=== PATIENT | male | born 1950 | race Caucasian/White ===

== ENCOUNTER 2021-12-08 10:07 | Outpatient (REF) | payer MEDICARE, OTHER, SELFPAY ==
[2021-12-08 16:17] LABS: ALT 28 U/L (16-63); AST 16 U/L (15-37); Albumin 3.9 g/dL (3.4-5.0); Alkaline Phosphatase 82 U/L (46-116); Anion Gap 9.8 mmol/L (3-11); BUN 20 mg/dL (7-18); Bilirubin, Total 1.6 mg/dL (0.2-1.0); CO2 26.2 mmol/L (21.0-32.0); CREATININE 1.2 mg/dL (0.70-1.30); Calcium 9.1 mg/dL (8.5-10.1); Chloride 106 mmol/L (98-107); Estimated GFR 59.86 (mL/min/1.73m2); Glucose 84 mg/dL (74-106); Potassium 4.5 mmol/L (3.5-5.1); Sodium 142 mmol/L (136-145)
[2021-12-08 19:59] LABS: Bilirubin, Direct 0.2 mg/dL (0.0-0.2)
== END 2021-12-08 10:08 | disposition home or self-care (01) ==
LOC: NCHCN 10:07
PROVIDERS: Visit Provider Nurse Practitioner Family
DX: N18.9 Chronic kidney disease, unspecified (principal); R17 Unspecified jaundice; R79.89 Other specified abnormal findings of blood chemistry
CPT/HCPCS: 80053; 82248

== ENCOUNTER 2022-09-16 10:43 | Outpatient (REF) | payer MEDICARE, OTHER, SELFPAY ==
[2022-09-16 14:59] LABS: Abs Immature Grans 0.01 10^3/uL (0.0-0.06); Absolute Basophil Count 0.02 10^3/uL (0.0-0.2); Absolute Eosinophil Count 0.25 10^3/uL (0.0-0.7); Absolute Lymphocyte Count 1.39 10^3/uL (1.2-3.4); Absolute Monocyte Count 0.73 10^3/uL (0.1-0.8); Absolute Neutrophil Count 4.28 10^3/uL (1.2-6.7); Basophils % 0.3; Eosinophils % 3.7; HCT 45.9 % (40.0-50.0); HGB 15.3 g/dL (13.5-17.5); Immature Grans % 0.1; Lymphocytes % 20.8; MCH 29.5 pg (27.0-33.0); MCHC 33.3 % (32.0-36.0); MCV 89 fL (80-95); MPV 9.9 fL (8.0-11.0); Monocytes % 10.9; Neutrophils % 64.2; Platelet Count 250 10^3/uL (130-400); RBC 5.18 10^6/uL (4.36-5.78); RDW 13.2 % (11.8-14.1); RDW-SD 43.1 fL; WBC 6.68 10^3/uL (4.4-10.8)
[2022-09-16 15:33] LABS: Vitamin D 25 Total 41.7 ng/mL (30-100)
[2022-09-16 15:35] LABS: ALT 24 U/L (16-63); AST 22 U/L (15-37); Alkaline Phosphatase 86 U/L (46-116); Anion Gap 9.1 mmol/L (3-11); BUN 17 mg/dL (7-18); Bilirubin, Direct 0.2 mg/dL (0.0-0.2); Bilirubin, Total 1.8 mg/dL (0.2-1.0); CO2 25.9 mmol/L (21.0-32.0); CREATININE 1.1 mg/dL (0.70-1.30); Calculated LDL 133 mg/dL (<100); Chloride 107 mmol/L (98-107); Cholesterol 203 mg/dL (<200); Estimated GFR 71.77 (mL/min/1.73m2); Glucose 94 mg/dL (74-106); HDL Cholesterol 38 mg/dL (40-60); Potassium 4.5 mmol/L (3.5-5.1); Sodium 142 mmol/L (136-145); Total Protein 7.4 g/dL (6.4-8.2); Triglyceride 163 mg/dL (<150)
[2022-09-16 15:36] LABS: Bilirubin Negative (Negative); Blood Negative (Negative); Clarity Clear (Clear); Glucose Negative (Negative); Ketones Negative (Negative); Leukocyte Esterase Negative (Negative); Nitrite Negative (Negative); Specific Gravity 1.025 (1.005-1.025); Urobilinogen 0.2 EU/dL (Up TO 0.2)
== END 2022-09-16 10:44 | disposition home or self-care (01) ==
LOC: LBN 10:43
DX: E78.00 Pure hypercholesterolemia, unspecified (principal); E55.9 Vitamin D deficiency, unspecified; D64.9 Anemia, unspecified; Z12.5 Encounter for screening for malignant neoplasm of prostate; N39.0 Urinary tract infection, site not specified; Z51.81 Encounter for therapeutic drug level monitoring
CPT/HCPCS: 80048; 80061; 80076; 82306; 84153; 81003; 85025

== ENCOUNTER 2023-09-30 09:43 | Outpatient (REF) | payer MEDICARE, SELFPAY ==
[2023-09-30 14:51] LABS: Abs Immature Grans 0.03 10^3/uL (0.0-0.06); Absolute Basophil Count 0.02 10^3/uL (0.0-0.2); Absolute Eosinophil Count 0.18 10^3/uL (0.0-0.7); Absolute Lymphocyte Count 1.36 10^3/uL (1.2-3.4); Absolute Monocyte Count 0.66 10^3/uL (0.1-0.8); Basophils % 0.4; Eosinophils % 3.3; HCT 45.9 % (40.0-50.0); HGB 15.4 g/dL (13.5-17.5); Immature Grans % 0.6; MCH 29.6 pg (27.0-33.0); MCHC 33.6 % (32.0-36.0); MCV 88 fL (80-95); MPV 9.8 fL (8.0-11.0); Monocytes % 12.1; Neutrophils % 58.6; Platelet Count 259 10^3/uL (130-400); RDW 12.8 % (11.8-14.1); RDW-SD 41.8 fL; WBC 5.45 10^3/uL (4.4-10.8)
[2023-09-30 14:53] LABS: Bilirubin Negative (Negative); Blood Negative (Negative); Clarity Clear (Clear); Glucose Negative (Negative); Ketones Negative (Negative); Leukocyte Esterase Negative (Negative); Nitrite Negative (Negative); Specific Gravity 1.025 (1.005-1.025); Urobilinogen 0.2 mg/dL (Up to 0.2); pH 5.5 (5-8)
[2023-09-30 15:03] LABS: ALT 26 U/L (16-63); AST 23 U/L (15-37); Albumin 3.8 g/dL (3.4-5.0); Alkaline Phosphatase 91 U/L (46-116); Anion Gap 10.6 mmol/L (3-11); BUN 21 mg/dL (7-18); Bilirubin, Direct 0.1 mg/dL (0.0-0.2); Bilirubin, Total 1.3 mg/dL (0.2-1.0); CO2 24.4 mmol/L (21.0-32.0); CREATININE 1.2 mg/dL (0.70-1.30); Calcium 9.3 mg/dL (8.5-10.1); Calculated LDL 148 mg/dL (<100); Chloride 105 mmol/L (98-107); Cholesterol 209 mg/dL (<200); Estimated GFR 64.25 (mL/min/1.73m2); Glucose 94 mg/dL (74-106); HDL Cholesterol 38 mg/dL (40-60); Potassium 4.4 mmol/L (3.5-5.1); Sodium 140 mmol/L (136-145); Total Protein 7.7 g/dL (6.4-8.2); Triglyceride 118 mg/dL (<150)
[2023-09-30 15:19] LABS: Vitamin D 25 Total 40.4 ng/mL (30-100)
[2023-09-30 22:35] LABS: PSA, Screening 3.9 ng/mL (<=6.5)
== END 2023-09-30 09:44 | disposition home or self-care (01) ==
LOC: LBN 09:43
PROVIDERS: Visit Provider Internal Medicine
DX: D64.9 Anemia, unspecified (principal); E55.9 Vitamin D deficiency, unspecified; E78.00 Pure hypercholesterolemia, unspecified; N39.0 Urinary tract infection, site not specified; Z51.81 Encounter for therapeutic drug level monitoring; Z12.5 Encounter for screening for malignant neoplasm of prostate
CPT/HCPCS: 80048; 80061; 80076; 82306; 84153; 81003; 85025

== ENCOUNTER 2024-10-16 21:55 | Outpatient (REF) | payer MEDICARE, SELFPAY ==
[2024-10-17 19:03] LABS: PSA, Diagnostic 4.7 ng/mL (<=6.5)
== END 2024-10-16 21:56 | disposition home or self-care (01) ==
LOC: LBN 21:55
PROVIDERS: Visit Provider Urology
DX: Z12.5 Encounter for screening for malignant neoplasm of prostate (principal)
CPT/HCPCS: 84153

== ENCOUNTER 2025-02-12 13:03 | Outpatient (REF) | payer MEDICARE, SELFPAY ==
[2025-02-12 15:26] LABS: Abs Immature Grans 0.02 10^3/uL (0.0-0.06); Absolute Basophil Count 0.04 10^3/uL (0.0-0.2); Absolute Eosinophil Count 0.25 10^3/uL (0.0-0.7); Absolute Monocyte Count 0.75 10^3/uL (0.1-0.8); Absolute Neutrophil Count 4.46 10^3/uL (1.2-6.7); Basophils % 0.6 %; Eosinophils % 3.6 %; HCT 47.2 % (40.0-50.0); HGB 15.9 g/dL (13.5-17.5); Immature Grans % 0.3 %; Lymphocytes % 21.4 %; MCH 29.7 pg (27.0-33.0); MCHC 33.7 % (32.0-36.0); MCV 88 fL (80-95); MPV 9.7 fL (8.0-11.0); Monocytes % 10.7 %; Neutrophils % 63.4 %; Platelet Count 259 10^3/uL (130-400); RBC 5.35 10^6/uL (4.36-5.78); RDW 12.7 % (11.8-14.1); RDW-SD 41.2 fL; WBC 7.02 10^3/uL (4.4-10.8)
[2025-02-12 15:36] LABS: Bilirubin Negative (Negative); Blood Negative (Negative); Clarity Clear (Clear); Glucose Negative (Negative); Ketones Negative (Negative); Leukocyte Esterase Negative (Negative); Nitrite Negative (Negative); Specific Gravity 1.025 (1.005-1.025); Urobilinogen 0.2 mg/dL (Up to 0.2); pH 5.5 (5-8)
[2025-02-12 16:03] LABS: ALT 26 U/L (16-63); AST 22 U/L (15-37); Albumin 3.9 g/dL (3.4-5.0); Alkaline Phosphatase 87 U/L (46-116); Anion Gap 6.6 mmol/L (3-11); BUN 17 mg/dL (7-18); Bilirubin, Total 1.3 mg/dL (0.2-1.0); CO2 27.4 mmol/L (21.0-32.0); CREATININE 1.3 mg/dL (0.70-1.30); Calcium 9.5 mg/dL (8.5-10.1); Calculated LDL 147 mg/dL (<100); Chloride 108 mmol/L (98-107); Cholesterol 217 mg/dL (<200); Estimated GFR 58.01 (mL/min/1.73m2); Glucose 98 mg/dL (74-106); HDL Cholesterol 44 mg/dL (>or=40); Potassium 4.4 mmol/L (3.5-5.1); Sodium 142 mmol/L (136-145); Total Protein 7.4 g/dL (6.4-8.2); Triglyceride 132 mg/dL (<150); Vitamin D 25 Total 45 ng/mL (30-100)
[2025-02-12 17:59] LABS: Bilirubin, Direct 0.2 mg/dL (0.0-0.2)
== END 2025-02-12 13:04 | disposition home or self-care (01) ==
LOC: NCHCN 13:03
PROVIDERS: PCP Nurse Practitioner Family; Visit Provider Nurse Practitioner Family
DX: E78.00 Pure hypercholesterolemia, unspecified (principal); E55.9 Vitamin D deficiency, unspecified; D64.9 Anemia, unspecified; Z51.81 Encounter for therapeutic drug level monitoring; N39.0 Urinary tract infection, site not specified
CPT/HCPCS: 80048; 80061; 80076; 82306; 81003; 85025